=== PATIENT | female | born 1955 | race Caucasian/White ===

== ENCOUNTER 2017-04-28 03:58 | Outpatient (CLI) | payer MEDICARE, MEDICAID | END 2017-04-28 23:59 | disposition home or self-care (01) | LOC: DIABETIC 03:58 | PROVIDERS: ATTEND Surgery | DX: E11.8 Type 2 diabetes mellitus with unspecified complications (principal) ==

== ENCOUNTER 2017-06-09 02:49 | Outpatient (CLI) | payer MEDICARE, MEDICAID | END 2017-06-09 23:59 | disposition home or self-care (01) | LOC: DIABETIC 02:49 | PROVIDERS: ATTEND Surgery | DX: E66.01 Morbid (severe) obesity due to excess calories (principal) | CPT/HCPCS: 97802 ==

== ENCOUNTER 2017-07-09 08:30 | Outpatient (CLI) | payer MEDICARE, MEDICAID | END 2017-07-09 23:59 | disposition home or self-care (01) | LOC: DIABETIC 08:30 | PROVIDERS: ATTEND Surgery | DX: E66.01 Morbid (severe) obesity due to excess calories (principal); Z71.3 Dietary counseling and surveillance | CPT/HCPCS: 97802 ==

== ENCOUNTER 2017-08-17 05:10 | Outpatient (CLI) | payer MEDICARE, MEDICAID | END 2017-08-17 23:59 | disposition home or self-care (01) | LOC: DIABETIC 05:10 | PROVIDERS: ATTEND Surgery | DX: E66.01 Morbid (severe) obesity due to excess calories (principal); Z71.3 Dietary counseling and surveillance | CPT/HCPCS: 97802 ==

== ENCOUNTER 2017-11-04 03:41 | Outpatient (CLI) | payer MEDICARE, MEDICAID | END 2017-11-04 23:59 | disposition home or self-care (01) | LOC: DIABETIC 03:41 | PROVIDERS: ATTEND Surgery | DX: E66.01 Morbid (severe) obesity due to excess calories (principal); Z71.3 Dietary counseling and surveillance | CPT/HCPCS: 97802 ==

== ENCOUNTER 2021-01-04 02:34 | Emergency (ER) | payer BC, MEDICAID ==
[~2021-01-04] VITALS: Ht 157.5 cm; Wt 100.0 kg
[2021-01-04 02:44] VITALS: BP 126/71
[2021-01-04] MEDS ORDERED: diazepam inj 5 MG/ML inj. IM ONE (03:00)
[2021-01-04] MEDS ORDERED: ketorolac tromethamine 15mg/ml inj. IM ONE (03:00)
[2021-01-04 03:54] LABS: CLARITY,URINE CLEAR (Clear); COLOR,URINE YELLOW (Yellow); PH,URINE 7.5 (4.8-8.0); UA COLLECTION TYPE VOIDED
[2021-01-04 03:55] LABS: GLUCOSE, URINE NEGATIVE (Neg); KETONES,URINE NEGATIVE (Neg); LEUKOCYTE ESTERASE ,URINE NEGATIVE (Neg); NITRITES, URINE NEGATIVE (Neg); OCCULT BLOOD,URINE NEGATIVE (Neg); PROTEIN,URINE NEGATIVE (Neg); UROBILINOGEN,URINE 0.2 E.U/dL (0.2-1.0)
== END 2021-01-04 05:40 | disposition home or self-care (01) ==
LOC: ER 02:35
DX: M54.30 Sciatica, unspecified side (principal); G89.29 Other chronic pain; Z87.442 Personal history of urinary calculi; Z88.1 Allergy status to other antibiotic agents; Z88.8 Allergy status to other drugs, medicaments and biological substances
CPT/HCPCS: 74176; 81003; 96372; 99284; J1885; J3360

== ENCOUNTER 2022-06-19 12:55 | Emergency (ER) | payer BC, MEDICAID ==
[~2022-06-19] VITALS: Ht 157.5 cm; Wt 107.0 kg
--- NOTE | 2022-06-19 15:03 | NUR ---
building maintenance technician at bedside.
[2022-06-19 16:27] VITALS: BP 122/64
== END 2022-06-19 16:31 | disposition home or self-care (01) ==
LOC: ER 12:55
DX: M25.531 Pain in right wrist (principal); M79.89 Other specified soft tissue disorders; G89.29 Other chronic pain; M54.9 Dorsalgia, unspecified; Z87.442 Personal history of urinary calculi; Z88.8 Allergy status to other drugs, medicaments and biological substances; Z88.5 Allergy status to narcotic agent; Z91.040 Latex allergy status; Z88.2 Allergy status to sulfonamides
CPT/HCPCS: 93971; 99285

== ENCOUNTER 2024-01-14 08:56 | Outpatient (CLI) | payer BC, MEDICAID | END 2024-01-14 23:59 | disposition home or self-care (01) | LOC: RAD 08:56 | PROVIDERS: ATTEND Podiatrist Foot & Ankle Surgery | DX: S92.41 Fracture of proximal phalanx of great toe (principal); M19.072 Primary osteoarthritis, left ankle and foot; M25.375 Other instability, left foot; M77.32 Calcaneal spur, left foot; X58.XXXD Exposure to other specified factors, subsequent encounter | CPT/HCPCS: 73700 ==